=== PATIENT | male | born 1940 | race Caucasian/White ===

== ENCOUNTER → 2017-10-16 | Outpatient (CLI) | payer MEDICARE, OTHER | END | disposition home or self-care (01) | LOC: EKG 10:04 | DX: R01.1 Cardiac murmur, unspecified (principal) | CPT/HCPCS: 93306 ==

== ENCOUNTER → 2018-12-12 | Outpatient (CLI) | payer MEDICARE, OTHER ==
[~2018-12-12] MED LIST: METOPROLOL (XL) 25 MG TAB PO; METOPROLOL 5 MG INJ IV; NITROGLYCERIN AEROSOL (4.9 GM)
[2018-12-12] MEDS: SOD CHLORIDE 0.9% 100 ML (10:51)
[2018-12-12] MEDS: IODIXANOL LOCM 100 ML BTL (10:52)
== END | disposition home or self-care (01) ==
LOC: C/S 08:40
DX: R07.9 Chest pain, unspecified (principal); I35.0 Nonrheumatic aortic (valve) stenosis
CPT/HCPCS: 75571; 75571-59; 75574

== ENCOUNTER 2019-01-30 06:40 | Day surgery (SDC) | payer MEDICARE, OTHER ==
[~2019-01-30 06:40] MED LIST changes: -METOPROLOL (XL) 25 MG TAB PO; -METOPROLOL 5 MG INJ IV; -NITROGLYCERIN AEROSOL (4.9 GM); +SOD CHLORIDE 0.45% 1,000 ML IV
[2019-01-30 09:20] LABS: ADD MAN DIFF? NO
[2019-01-30 09:22] LABS: BASOPHIL # 0.1 10^3/ul (0.0-0.1); BASOPHILS % 0.7 % (0.0-2.0); EOSINOPHILS # 0.3 10^3/ul (0.0-0.5); EOSINOPHILS % 4.2 % (0.0-7.0); HEMATOCRIT 38.8 % (42.0-52.0); HEMOGLOBIN 12.6 g/dl (14.0-18.0); LYMPHOCYTES # 2.3 10^3/ul (0.8-2.9); LYMPHOCYTES % 28.4 % (15.0-51.0); MEAN CORPUSCULAR HEMOGLOBIN 30.3 pg (29.0-33.0); MEAN CORPUSCULAR HGB CONC 32.5 g/dl (32.0-37.0); MEAN CORPUSCULAR VOLUME 93.3 fl (82.0-101.0); MEAN PLATELET VOLUME 8.8 fl (7.4-10.4); MONOCYTE # 0.9 10^3/ul (0.3-0.9); MONOCYTES % 11.5 % (0.0-11.0); NEUTROPHIL # 4.5 10^3/ul (1.6-7.5); PLATELET COUNT 373 10^3/UL (140-415); RED BLOOD COUNT 4.16 10^6/ul (4.70-6.10); RED CELL DISTRIBUTION WIDTH 13.1 % (11.5-14.5)
[2019-01-30 09:22] LABS: WHITE BLOOD COUNT 8.2 10^3/ul (4.8-10.8)
[2019-01-30 09:41] LABS: INR 0.95; PROTIME 12.8 Sec (11.9-14.9)
[2019-01-30 09:42] LABS: PARTIAL THROMBOPLASTIN TIME 31.2 Sec (23.0-35.0)
[2019-01-30 09:55] LABS: ANION GAP 8 (5-13); CALCIUM 9.6 mg/dl (8.4-10.2); CARBON DIOXIDE 27 mmol/L (21-31); CHLORIDE 104 mmol/L (97-110); CHOL/HDL RATIO 4.4 RATIO; CHOLESTEROL 139 mg/dl (100-200); GLUCOSE 107 mg/dl (70-220); HDL CHOLESTEROL 31 mg/dl (31-75); LDL CHOLESTEROL,CALCULATED 82 mg/dl; POTASSIUM 4.7 mmol/L (3.5-5.1); SODIUM 139 mmol/L (135-144); TRIGLYCERIDES 128 mg/dl (0-149)
[2019-01-30 09:56] LABS: BLOOD UREA NITROGEN 30 mg/dl (7-20)
[2019-01-30] MEDS: DIPHENHYDRAMINE 50 MG CAP PO (10:45)
[2019-01-30] MEDS: FAMOTIDINE 20 MG TAB PO (10:45)
[2019-01-30] MEDS: DIAZEPAM 5 MG TAB PO (10:45)
[2019-01-30] MEDS ORDERED: IODIXANOL LOCM 100 ML BTL (11:23)
[2019-01-30] MEDS ORDERED: LIDOCAINE 1% (MDV) 20 ML INJ (11:23)
[2019-01-30] MEDS ORDERED: IODIXANOL LOCM 50 ML BTL (12:15)
[2019-01-30] MEDS: SOD CHLORIDE 0.9% 1,000 ML IV (12:21)
[2019-01-30] MEDS ORDERED: morphine 2 MG INJ IV (12:30)
[2019-01-30] MEDS ORDERED: ACETAMINOPHEN 325 MG TAB PO (12:30)
[2019-01-30] MEDS ORDERED: ONDANSETRON 4 MG INJ IV (12:30)
[2019-01-30] MEDS ORDERED: AL HYDROX/MG HYDROX/SIMETH 30 ML CUP PO (12:30)
== END 2019-01-30 18:24 | disposition home or self-care (01) ==
LOC: SDS 06:40
DX: I35.0 Nonrheumatic aortic (valve) stenosis (principal); I48.91 Unspecified atrial fibrillation; I25.10 Atherosclerotic heart disease of native coronary artery without angina pectoris; I10 Essential (primary) hypertension; E78.00 Pure hypercholesterolemia, unspecified
CPT/HCPCS: 71045; 80048; 80061; 82962; 85025; 85610; 85730; 93005; 93460